=== PATIENT | female | born 1960 | race Caucasian/White ===

== ENCOUNTER 2021-11-04 16:13 | Emergency (ER) | payer BC, SELFPAY ==
--- NOTE | ~2021-11-04 | XR_ITS ---
EXAMINATION: XR thoracic spine 3V DATE: 11/04/2021 18:10 INDICATION: Mid back pain. TECHNIQUE: 3 views of thoracic spine were obtained. COMPARISON: None. FINDINGS: There is 8 degrees dextrocurvature of upper thoracic spine. Vertebral body heights are norm al. Intervertebral disc heights are normal. There are endplate osteophytes at most levels. Surgical c lips in the right upper quadrant are likely from cholecystectomy. IMPRESSION: 1. Mild thoracic spondylosis. Reviewed, dictated and finalized at location E. VAN CDL TRUCK DRIVER
--- NOTE | ~2021-11-04 | XR_ITS ---
XR chest 2V DATE: 11/04/2021 16:52 INDICATION: Left chest pain. Blurred vision. Headache. TECHNIQUE: PA and lateral views COMPARISON: None FINDINGS: Normal heart size. No hilar or mediastinal enlargement. No pulmonary infiltrate or consolid ation, pleural effusion or pulmonary vascular congestion or pneumothorax. Mild degenerative spurring of the thoracic spine. Status post cholecystectomy. IMPRESSION: No active cardiopulmonary disease Reviewed, dictated and finalized at location A. KLESS TROLLEY DRIVER
--- NOTE | ~2021-11-04 | CT_ITS ---
EXAMINATION: CT brain wo con DATE: 11/04/2021 17:01 INDICATION: Headache, blurred vision for 2 weeks TECHNIQUE: Computed tomography (CT) of the head was performed without intravenous contrast. The mA wa s adjusted according to patient size. Iterative reconstruction technique was employed. Exam dose: 60 3.05 mGy-cm total exam DLP. COMPARISON: None FINDINGS: No intracranial mass lesion or hemorrhage or cerebrovascular accident. No midline shift or mass effect. Normal ventricular size. Mild cerebral atherosclerotic calcification. There is nonspecific diminished attenuation of the cereb ral white matter, likely due to chronic small vessel ischemic changes. No subdural or epidural hematoma. No sellar or suprasellar mass lesion. The orbits are unremarkable. No fracture or bone destruction of the cranial vault. Bilateral nasal antral windows. Status post bilateral partial ethmoidectomies. There is mild echogram s thickening of the left maxillary and both sphenoid sinuses and some septal soft tissue thickening o f the remaining ethmoids septae. The mastoid air cells are unremarkable. IMPRESSION: Cerebral atherosclerosis and chronic small vessel ischemic changes of cerebral white mat ter No acute intracranial finding Reviewed, dictated and finalized at Location A. Reviewed, dictated and finalized at location A. EMS TECHNICIAN IMPRESSION: Cerebral atherosclerosis and chronic small vessel ischemic changes of cerebral white matter No acute intracranial finding
--- NOTE | ~2021-11-04 | XR_ITS ---
EXAMINATION: XR lumbar spine 2-3V DATE: 11/04/2021 18:10 INDICATION: Low back pain. TECHNIQUE: 3 views of lumbar spine were obtained. COMPARISON: None. FINDINGS: There is 3 mm anterolisthesis of L4 on L5. Vertebral body heights are normal. There is mild ly decreased disc height at L4-L5. There is multilevel facet joint osteoarthritis, severe at L4-L5. S urgical clips in the right upper quadrant are likely from cholecystectomy. IMPRESSION: 1. Mild lumbar spondylosis. Reviewed, dictated and finalized at location E. VIORAL THERAPY COORDINATOR IMPRESSION: 1. Mild lumbar spondylosis.
[2021-11-04 16:17] VITALS: BP 146/90; PULSE 70; RESP 20; TEMP 36.4; O2SAT 100
--- NOTE | 2021-11-04 16:32 | ECG_ITS ---
Measurements Intervals [place] Rate: 58 P: 5 [place]: 167 QRS: 9 QRSD: 84 T: 33 QT: 399 QTc: 395 Interpretive Statements SINUS BRADYCARDIA WITH SINUS ARRHYTHMIA BASELINE ARTIFACT- V1 BORDERLINE ECG Electronically Signed On 11-04-2021 16:46:22 REPAIR MECHANIC by Ubaldo Wilson D.O.
[2021-11-04 17:00] VITALS: BP 148/80; PULSE 60; RESP 16; TEMP 36.3; O2SAT 98
[2021-11-04 17:04] LABS: Basophils Percent Auto 0.6 % (0.2-1.2); Eosinophils Absolute Auto 0.3 K/mm3 (0-0.3); Eosinophils Percent Auto 4.3 % (0-4.4); Hematocrit 38.3 % (37.0-47.0); Hemoglobin 12.6 g/dL (12.0-15.0); Immature Granulocyte Absolute 0.01 K/mm3 (0.00-0.031); Immature Granulocyte Percent A 0.2 % (0-0.5); Mean Corpuscular HGB Conc 32.9 g/dl (32-36); Mean Corpuscular Hemoglobin 29.6 pg (26-34); Mean Corpuscular Volume 90.1 fl (80-100); Mean Platelet Volume 11.3 fl (7.4-10.4); Monocytes Absolute Auto 0.6 K/mm3 (0.1-0.6); Monocytes Percent Auto 8.8 % (2.6-8.5); Neutrophils Absolute Auto 3.4 K/mm3 (1.3-6.7); Neutrophils Percent Auto 52.1 % (45.5-73.1); Platelet Count Result 206 k/mm3 (150-375); Red Blood Count 4.25 M/mm3 (4.2-5.4); Red Cell Distribution Width 13.3 % (11.5-14.5); White Blood Count 6.5 K/mm3 (4.5-10.0)
[2021-11-04] MEDS: METOCLOPRAMIDE HCL INJ 10 MG/2 ML VIAL IV PUSH (17:06)
[2021-11-04] MEDS: diphenhydrAMINE HCl INJ 50 MG/ML VIAL 25 MG IV PUSH (17:06)
[2021-11-04] MEDS: SODIUM CHLORIDE 0.9% IV 1,000 ML 999 ML IV CONT (17:09)
[2021-11-04 17:14] LABS: Prothrombin Time 12.3 Seconds (11.1-14.7)
[2021-11-04 17:15] LABS: Partial Thromboplastin Time 28.6 SECONDS (22.3-36.8)
[2021-11-04 17:16] LABS: Alanine Aminotransferase 22 U/L (4-35); Albumin Level 4.1 g/dL (3.5-5.1); Alkaline Phosphatase 106 U/L (38-126); Anion Gap 3 mmol/L (8-16); Aspartate Amino Transferase 31 U/L (14-36); Bilirubin,Total 0.5 mg/dL (0.2-1.3); Blood Urea Nitrogen 20 mg/dL (7-17); Calcium 9.2 mg/dL (8.4-10.2); Carbon Dioxide 29 mmol/L (22-30); Chloride 102 mmol/L (98-107); Estimated CRCL calculation 67 ml/min; Estimated Glomerular Filt Rate > 60; Glucose 100 mg/dL (65-110); Lipase 98 U/L (23-300); Potassium 3.9 mmol/L (3.4-5.0); Sodium 134 mmol/L (137-145)
[2021-11-04 17:24] LABS: Troponin I < 0.012 ng/mL (0.000-0.034)
--- NOTE | 2021-11-04 17:45 | ED.HA ---
HPI - Headache General Chief Complaint: Headache Stated Complaint: headache, back pain, chest pain Time Seen by Provider: 11/04/21 16:46 Source: patient Mode of arrival: ambulatory Limitations: no limitations History of Present Illness HPI Narrative: This is a 61 year old female that presents to the ER with multiple complaints. Reports she has been getting headaches associated with blurred vision. Reports she has had intermittent chest pain for years. Also reports over the last couple of weeks she has had some mid-low back pain. No recent injuries. She reports history of arthritis. Does report her pain feels better when she is active. Denies fever, shortness of breath, vomiting, numbness or weakness. Related Data Allergies Allergy/AdvReac Type Severity Reaction Status Date / Time No Known Allergies Allergy Unknown Verified 12/19/13 10:42 Review of Systems Review of Systems: CONSTITUTIONAL: Denies fever EYES: Reports visual changes CARDIOVASCULAR: Reports chest pain. Denies edema. RESPIRATORY: Denies dyspnea. GASTROINTESTINAL: Denies vomiting MUSCULOSKELETAL: Reports back pain, joint pain, and myalgia. NEUROLOGIC: Reports headache. Denies numbness, or weakness. All systems reviewed & are unremarkable except as noted in HPI and below PMFSH Past Medical History Medical History (Updated 11/04/21 @ 19:12 by Tuyet Cali PA-C) History of hyperlipidemia History of hypothyroidism Social History Social History (Updated 11/04/21 @ 18:10 by Tuyet Cali PA-C) Smoking status: Never smoker Exam Narrative: GENERAL: Well-appearing, well-nourished, and in no acute distress. HEAD: Normocephalic, atraumatic. EYES: PERRLA and EOMI. ENT: Nares clear, no rhinorrhea or epistaxis. Mucous membranes moist. Oropharynx without tonsillar hypertrophy exudate or other lesions. Bilateral TMs pearly estrada non-bulging NECK: Supple. No adenopathy or masses. CHEST: Clear to auscultation. No respiratory distress. No wheezes rales or rhonchi HEART: Regular rate and rhythm. No murmur heard. Normal peripheral pulses. ABDOMEN: Soft, nontender, nondistended, normal active bowel sounds. EXTREMITIES: Normal range of motion. No edema. Strength equal in bilateral upper extremities (5/5) SKIN: Warm, dry, no rash. NEURO: No focal deficits. Alert and oriented x3. CN II-XII grossly intact PSYCH: Normal mood and affect Course Vital Signs Vital signs: Vital Signs Temperature 97.6 F 11/04/21 16:17 Pulse Rate 70 11/04/21 16:17 Respiratory Rate 20 11/04/21 16:17 Blood Pressure 146/90 H 11/04/21 16:17 Pulse Oximetry 100 11/04/21 16:17 Temperature 97.6 F 11/04/21 16:17 Pulse Rate 70 11/04/21 16:17 Respiratory Rate 20 11/04/21 16:17 Blood Pressure 146/90 H 11/04/21 16:17 Pulse Oximetry 100 11/04/21 16:17 MDM - Headache MDM Narrative Medical decision making narrative: Patient presents to the ER with multiple complaints which have been ongoing for weeks to years. Reports chest pain, back pain, and headaches. Patient is afebrile and nontoxic-appearing. She is neurologically intact. Reports improvement with migraine cocktail. CBC and metabolic panel without concerning findings. Lipase is normal. EKG without concerning ST changes and baseline troponin is negative. Chest x-ray without acute cardiopulmonary abnormality. Thoracic and lumbar spine x-rays show mild spondylosis. CT scan of the brain without acute findings. Patient was updated on case findings. She is stable and felt appropriate for further outpatient evaluation. She is instructed to follow-up with her primary care doctor. She was given warnings to return to the ER Lab Data Attestation: I reviewed the patient's lab results. Result diagrams: 11/04/21 16:36 11/04/21 16:36 Labs: Lab Results 11/04/21 11/04/21 11/04/21 Range/Units 16:36 16:36 16:36 WBC 6.5 (4.5-10.0) K/mm3 RBC 4.25 (4.2-5.4) M/mm3 Hgb 12.6
[2021-11-04 18:00] VITALS: BP 152/68; PULSE 58; RESP 16; O2SAT 98
[2021-11-04 19:00] VITALS: BP 150/78; PULSE 61; RESP 14; TEMP 36.4; O2SAT 99
== END 2021-11-04 19:21 | disposition home or self-care (01) ==
PROVIDERS: Emergency Medicine; Emergency Provider Emergency Medicine; PCP Family Medicine
DX: R51.9 Headache, unspecified (principal); R07.9 Chest pain, unspecified; M54.50 Low back pain, unspecified; G89.29 Other chronic pain; E78.5 Hyperlipidemia, unspecified; E03.9 Hypothyroidism, unspecified; M47.814 Spondylosis without myelopathy or radiculopathy, thoracic region; M47.816 Spondylosis without myelopathy or radiculopathy, lumbar region; I67.2 Cerebral atherosclerosis
CPT/HCPCS: 36415; 70450; 71046; 72072; 72100; 80053; 83690; 84484; 85025; 85610; 85730; 93005; 96361; 96365; 96375; 99284; J0131; J1200; J2765; J7030

== ENCOUNTER 2022-02-03 11:53 | Emergency (ER) | payer BC, SELFPAY ==
[2022-02-03 12:00] VITALS: BP 124/68; PULSE 63; RESP 18; TEMP 37.3; O2SAT 97
--- NOTE | 2022-02-03 12:15 | ED.URI ---
HPI - URI/Sore Throat General Chief Complaint: Upper Respiratory Infection Stated Complaint: congestion Time Seen by Provider: 02/03/22 12:15 Source: patient, family, RN notes reviewed and old records reviewed Mode of arrival: ambulatory Limitations: no limitations History of Present Illness HPI Narrative: 61-year-old female presents to the [facility] with nasal congestion, allergy symptoms since Sunday. Lost her taste yesterday, lost her smell on Sunday. Concern for COVID. Patient is vaccinated against COVID but not flu. Patient reports negative home COVID test. Related Data Home Medications Medication Instructions Recorded Confirmed atorvastatin 20 mg DIRECTED 02/03/22 02/03/22 levothyroxine 100 mcg DIRECTED 02/03/22 02/03/22 mirabegron [Myrbetriq] 25 mg PO DIRECTED 02/03/22 02/03/22 oxybutynin chloride 10 mg PO DIRECTED 02/03/22 02/03/22 pantoprazole 40 mg PO DIRECTED 02/03/22 02/03/22 valacyclovir 500 mg DIRECTED 02/03/22 02/03/22 Allergies Allergy/AdvReac Type Severity Reaction Status Date / Time No Known Allergies Allergy Unknown Verified 12/19/13 10:42 Review of Systems Review of Systems: All systems reviewed & are unremarkable except as noted in HPI and below Constitutional: Constitutional: Reports no additional constitutional complaints, Denies chills, Denies fever(s) and Denies headache(s) Eyes: Eyes: Reports no additional eye complaints ENT: Reports as per HPI, Denies vertigo, Denies dizziness, Denies headache(s), Reports nasal congestion and Denies sore throat Comments: Loss of taste and smell Cardiovascular: Cardiovascular: Reports no additional cardiovascular complaints, Denies chest pain, Denies syncope, Denies rapid heart rate and Denies dyspnea Respiratory: Respiratory: Reports as per HPI, Reports chest congestion, Reports cough, Denies dyspnea and Denies wheezing Gastrointestinal: Gastrointestinal: Reports no additional gastrointestinal complaints, Denies abdominal pain, Denies diarrhea, Denies nausea and Denies vomiting Musculoskeletal: Musculoskeletal: Reports no additional musculoskeletal complaints and Denies numbness Integumentary/Breasts: Skin/Breast: Reports system reviewed and no additional complaints, except as docu Neurologic: Reports as per HPI, Denies vertigo, Denies dizziness, Denies syncope, Reports headache(s), Denies focal weakness and Denies numbness Psychiatric: Psychiatric: Reports no additional psychiatric complaints Allergic/Immunologic: Allergic/Immunologic: Reports no additional allergic/immunologic complaints and Denies wheezing PMFSH Past Medical History Medical History History of hyperlipidemia History of hypothyroidism Social History Social History Smoking status: Never smoker Comments At the time of my signature, I reviewed and agree with the nursing past medical, surgical, social, and family history. There is no relevant family history pertinent to the patient complaint. Exam Const: General: cooperative, healthy appearing, no acute distress, well developed and alert Nutritional Appearance: well nourished Orientation/consciousness: patient oriented x3 Limitations: no limitations HENMT: Head: normal to inspection General nose exam: Normal external nose present and Nasal discharge present clear Face and sinus: normal facial exam Mouth: Yes Normal oral and palatal mucosa present and Yes moist mucous membranes Throat: posterior oropharynx normal, tonsils normal, uvula midline and no uvular edema Eyes: Conjunctivae: conjunctivae normal Pupils: Equal, round and reactive pupils present Neck: Neck: normal visual inspection, no lymphadenopathy and no meningeal signs Chest: Chest palpation & inspection: normal inspection of the chest Resp: Effort & Inspection: normal respiratory effort and no use of accessory muscles Auscultation: c
[2022-02-03 19:53] LABS: SARS-CoV-2 RNA PCR Negative
== END 2022-02-03 13:11 | disposition home or self-care (01) ==
PROVIDERS: Emergency Provider Nurse Practitioner; PCP Family Medicine
DX: J06.9 Acute upper respiratory infection, unspecified (principal); Z20.822 Contact with and (suspected) exposure to COVID-19; E78.5 Hyperlipidemia, unspecified; E03.9 Hypothyroidism, unspecified
CPT/HCPCS: 87804; 99213; C9803; G0463; U0003; U0005

== ENCOUNTER 2022-07-20 00:21 | Day surgery (SDC) | payer OTHER, SELFPAY ==
[2022-07-12 15:21] VITALS: BMI 32.3
--- NOTE | 2022-07-20 06:42 | PM.HPGS ---
History of Present Illness History of Present Illness Consent: Risks, benefits, and alternatives have been discussed and questions answered. Patient agrees to proceed with procedure. Chief complaint: dysphagia Narrative: Lisa Diaz is a 62 year old female With dysphagia for solid foods such as bread and cake. She often has a need to clear her throat. She believes that she has less sinus drainage. An ENT physician told her that he Jo inflammation and prescribe pantoprazole. That did not seem to make a difference. Review of Systems Review of Systems: All systems reviewed & are unremarkable except as noted in HPI and below PMFSH Past Medical History Medical History Colon cancer screening History of hyperlipidemia History of hypothyroidism Obesity (BMI 30-39.9) Social History Social History Smoking status: Never smoker Alcohol intake: current Alcohol use details: 1-2 drinks monthly Substance use type: does not use Living arrangements: alone Spiritual care concerns: No Meds Home Medications and Allergies Home Medications Medication Instructions Recorded Confirmed Type atorvastatin 20 mg tablet 20 mg PO DAILY 02/03/22 07/12/22 History levothyroxine 100 mcg tablet 100 mcg PO DAILY 02/03/22 07/12/22 History mirabegron 25 mg tablet,extended 25 mg PO DAILY 02/03/22 07/12/22 History release 24 hr (Myrbetriq) pantoprazole 40 mg tablet,delayed 40 mg PO DAILY 02/03/22 07/12/22 History release valacyclovir 500 mg tablet 500 mg PO DAILY 02/03/22 07/12/22 History Lactobacillus 1 cap PO DAILY 07/12/22 07/12/22 History acidophilus-Bifidobac.animalis 2.5 billion cell capsule (Daily Probiotic) ascorbic acid (vitamin C) 500 mg 500 mg PO DAILY 07/12/22 07/12/22 History tablet (Vitamin C With Diana Hips) cetirizine 10 mg tablet (Zyrtec) 10 mg PO DAILY 07/12/22 07/12/22 History estradiol 1 mg tablet 1 mg PO DAILY 07/12/22 07/12/22 History oruyzdpp-mokt-szasg acid 240 1 tablet PO DAILY 07/12/22 07/12/22 History mcg-vit K 120 poj-gmdhju-grwp 293 tablet (Alive Women's 50 Plus (fruit-veg blend)) Allergies Allergy/AdvReac Type Severity Reaction Status Date / Time codeine AdvReac Hallucinati Verified 07/20/22 07:52 ng morphine AdvReac Hallucinati Verified 07/20/22 07:52 ng Benadryl cocktail AdvReac Hallucinati Uncoded 07/12/22 15:25 ng Exam Const: General: alert Orientation/consciousness: patient oriented x3 Resp: Auscultation: clear to auscultation bilaterally Cardio: Rhythm: regular rhythm GI: GI Palp: Yes Soft to palpation and No Tenderness to palpation present (GI) Neuro: General: patient oriented x3 Assessment and Plan Assessment and plan (1) Dysphagia: Code(s): R13.10 - Dysphagia, unspecified Status: Acute Assessment and Plan: EGD with possible biopsy or dilatation or cautery.
[2022-07-20 07:53] VITALS: BP 106/73; PULSE 56; RESP 18; TEMP 36.6; O2SAT 98; BMI 32.5
[2022-07-20] MEDS: LACTATED RINGERS 1,000 ML 150 ML IV CONT (08:04)
--- NOTE | 2022-07-20 08:38 | WPDANESEPPF ---
Anes - Initial Pre Proc Eval Procedure: Operation Date: 07/20/22 09:00 Proposed Procedures p Esophagogastroduodenoscopy EGD - Giovani Ontiveros MD Date/Time: 07/20/22 08:38 Surgeon: Giovani Ontiveros MD Pre Op Diagnosis: dysphagia Patient Data Age: 62 Gender: F Height: 1.68 m Weight: 91.6 kg Last Vital Signs Temp 97.8 F 07/20/22 07:53 Pulse 56 L 07/20/22 07:53 Resp 18 07/20/22 07:53 BP 106/73 07/20/22 07:53 Pulse Ox 98 07/20/22 07:53 O2 Del Method Room Air 07/20/22 07:53 Allergies Allergy/AdvReac Type Severity Reaction Status Date / Time codeine AdvReac Hallucinati Verified 07/20/22 07:52 ng morphine AdvReac Hallucinati Verified 07/20/22 07:52 ng Benadryl cocktail AdvReac Hallucinati Uncoded 07/12/22 15:25 ng Home Medications Medication Instructions Recorded Confirmed Type atorvastatin 20 mg tablet 20 mg PO DAILY 02/03/22 07/12/22 History levothyroxine 100 mcg tablet 100 mcg PO DAILY 02/03/22 07/12/22 History mirabegron 25 mg tablet,extended 25 mg PO DAILY 02/03/22 07/12/22 History release 24 hr (Myrbetriq) pantoprazole 40 mg tablet,delayed 40 mg PO DAILY 02/03/22 07/12/22 History release valacyclovir 500 mg tablet 500 mg PO DAILY 02/03/22 07/12/22 History Lactobacillus 1 cap PO DAILY 07/12/22 07/12/22 History acidophilus-Bifidobac.animalis 2.5 billion cell capsule (Daily Probiotic) ascorbic acid (vitamin C) 500 mg 500 mg PO DAILY 07/12/22 07/12/22 History tablet (Vitamin C With Diana Hips) cetirizine 10 mg tablet (Zyrtec) 10 mg PO DAILY 07/12/22 07/12/22 History estradiol 1 mg tablet 1 mg PO DAILY 07/12/22 07/12/22 History zujhyglw-sfhq-msmru acid 240 1 tablet PO DAILY 07/12/22 07/12/22 History mcg-vit K 120 kfd-tbxenx-phfx 293 tablet (Alive Women's 50 Plus (fruit-veg blend)) Patient hx anesthesia problems: none Family hx anesthesia problems: none Results Review: All pre-operative results and documents have been reviewed as part of the pre-operative evaluation. [facility] Past Medical History Medical History (Updated 07/20/22 @ 06:42 by Giovani Ontiveros MD) Colon cancer screening History of hyperlipidemia History of hypothyroidism Obesity (BMI 30-39.9) Social History Social History Smoking status: Never smoker Alcohol intake: current Alcohol use details: 1-2 drinks monthly Substance use type: does not use Living arrangements: alone Spiritual care concerns: No Anes - Eval Final PreProcedure Day of Procedure 07/20/22 08:38 Patient weight: obese Heart: regular rate and rhythm Lungs: clear to auscultation Airway: Mallampati scale class II Neurological: alert and oriented Last oral intake: >/= 8 hours ASA classification: II Emergent: no Anesthetic plan: proceed Anesthesia type and monitoring: general GIVS and standard monitoring Results Review: All pre-operative results and documents have been reviewed as part of the pre-operative evaluation. Informed Consent: The patient's anesthetic plan and its attendant risks and benefits were discussed with the patient/family/POA. Questions were solicited and answers provided to the satisfaction of the patient/family/POA.
[2022-07-20 09:02] VITALS: BP 106/63; PULSE 68; RESP 27; O2SAT 98
[2022-07-20 09:12] VITALS: BP 111/71; PULSE 62; RESP 19; O2SAT 99
[2022-07-20 09:22] VITALS: BP 108/75; PULSE 60; RESP 17; O2SAT 97
== END 2022-07-20 09:33 | disposition home or self-care (01) ==
PROVIDERS: PCP Family Medicine; Visit Provider Internal Medicine Gastroenterology
PROC: 0DJ08ZZ Inspection of Upper Intestinal Tract, Via Natural or Artificial Opening Endoscopic (ICD-10-PCS; CPT 43235; principal; 2022-07-20 09:00)
DX: R13.10 Dysphagia, unspecified (principal); K21.9 Gastro-esophageal reflux disease without esophagitis; E78.5 Hyperlipidemia, unspecified; E03.9 Hypothyroidism, unspecified; E66.9 Obesity, unspecified; Z68.32 Body mass index [BMI] 32.0-32.9, adult
CPT/HCPCS: 43239; 87081; 88305; J2704; J7120

== ENCOUNTER 2022-11-21 21:56 | Emergency (ER) | payer OTHER, SELFPAY ==
--- NOTE | ~2022-11-21 | XR_ITS ---
Clinical Indication: Chest pain PA and lateral views of the chest: Comparison: 11/04/2021 Findings: The lungs are clear, without evidence of focal consolidation or pleural effusion. Cardiome diastinal silhouette is within normal limits. Bones and soft tissues are unremarkable. Impression: Normal chest. Reviewed, dictated and finalized at location . GER HELPDESK Impression: Normal chest.
[2022-11-21 21:58] VITALS: BP 146/94; PULSE 63; RESP 17; TEMP 36.6; O2SAT 99
--- NOTE | 2022-11-21 22:01 | ECG_ITS ---
Measurements Intervals [place] Rate: 66 P: 20 [place]: 163 QRS: -15 QRSD: 84 T: 54 QT: 379 QTc: 400 Interpretive Statements SINUS RHYTHM WITH SINUS ARRHYTHMIA DELAYED PRECORDIAL R/S TRANSITION BASELINE ARTIFACT- I, II, III, AVR, AVL, AVF, V1-V6 COMPARED TO ECG 11/04/2021 16:43:05 SINUS RHYTHM NOW PRESENT Electronically Signed On 11-22-2022 6:40:00 FUEL YARD OPERATOR by Ubaldo Wilson D.O.
[2022-11-21 22:14] LABS: Basophils Absolute Auto 0.1 K/mm3 (0.0-0.1); Basophils Percent Auto 0.8 % (0.2-1.2); Eosinophils Absolute Auto 0.4 K/mm3 (0-0.3); Eosinophils Percent Auto 5.2 % (0-4.4); Hematocrit 41.7 % (37.0-47.0); Hemoglobin 13.7 g/dL (12.0-15.0); Immature Granulocyte Absolute 0.03 K/mm3 (0.00-0.031); Immature Granulocyte Percent A 0.4 % (0-0.5); Lymphocytes Absolute Auto 2.76 K/mm3 (0.9-3.2); Mean Corpuscular HGB Conc 32.9 g/dl (32-36); Mean Corpuscular Hemoglobin 29.4 pg (26-34); Mean Corpuscular Volume 89.5 fl (80-100); Mean Platelet Volume 10.6 fl (7.4-10.4); Monocytes Absolute Auto 0.6 K/mm3 (0.1-0.6); Monocytes Percent Auto 8.5 % (2.6-8.5); Neutrophils Absolute Auto 3.3 K/mm3 (1.3-6.7); Neutrophils Percent Auto 46.1 % (45.5-73.1); Platelet Count Result 222 k/mm3 (150-375); Red Blood Count 4.66 M/mm3 (4.2-5.4); Red Cell Distribution Width 13.3 % (11.5-14.5); White Blood Count 7.1 K/mm3 (4.5-10.0)
[2022-11-21 22:23] LABS: INR 0.9; Platelet Estimate Adequate (Adequate); Prothrombin Time 11.8 Seconds (11.1-14.7)
[2022-11-21 22:24] LABS: Alanine Aminotransferase 24 U/L (6-35); Albumin Level 4.4 g/dL (3.5-5.1); Alkaline Phosphatase 92 U/L (38-126); Anion Gap 5 mmol/L (8-16); Aspartate Amino Transferase 28 U/L (14-36); Bilirubin,Total 0.6 mg/dL (0.2-1.3); Blood Urea Nitrogen 18 mg/dL (7-17); Calcium 9.2 mg/dL (8.4-10.2); Carbon Dioxide 30 mmol/L (22-30); Chloride 103 mmol/L (98-107); Estimated CRCL calculation 82 ml/min; Estimated Glomerular Filt Rate > 60; Glucose 117 mg/dL (65-110); Lipase 123 U/L (23-300); Partial Thromboplastin Time 27.4 SECONDS (22.3-36.8); Schistocytes None Seen (NORMAL); Sodium 138 mmol/L (137-145)
[2022-11-21 22:35] LABS: Troponin I < 0.012 ng/mL (0.000-0.034)
[2022-11-22] VITALS (12 sets, daily range): BP systolic 106–169; BP diastolic 57–76; PULSE 62–78; RESP 12–30; O2SAT 97–98
--- NOTE | 2022-11-22 02:00 | ED.CHESTPAIN ---
HPI - Chest Pain General Chief Complaint: Chest Pain Stated Complaint: dizziness and chest discomfort Time Seen by Provider: 11/22/22 01:21 Source: patient, RN notes reviewed and old records reviewed Mode of arrival: ambulatory Limitations: no limitations History of Present Illness HPI narrative: This is a 62 year old female who presents for evaluation of chest tightness. She states that around 9 pm she developed sudded onset left breast squeezing and it felt like it went straight to her back. She also reports she felt her heart throbbing and there was also throbbing sensation in her head. She also reports feeling pain in her left arm . She reports becoming scared and panicked. She reports mild sob. She denies slurred speech, diaphoresis, focal weakness. Her throbbing has resolved. She states her chest tightness has subsided and it is 2/10 now. She reports mild headache. She states she has history of costochondritis. She has had negative heart catheterization in past 10 years. She denies recent issue with dyspnea on exertion and chest pain. She does report chronic fatigue sincer her bout with covid. Related Data Home Medications Medication Instructions Recorded Confirmed atorvastatin 20 mg tablet 20 mg PO DAILY 02/03/22 07/12/22 levothyroxine 100 mcg tablet 100 mcg PO DAILY 02/03/22 07/12/22 mirabegron 25 mg tablet,extended 25 mg PO DAILY 02/03/22 07/12/22 release 24 hr (Myrbetriq) pantoprazole 40 mg tablet,delayed 40 mg PO DAILY 02/03/22 07/12/22 release valacyclovir 500 mg tablet 500 mg PO DAILY 02/03/22 07/12/22 Lactobacillus 1 cap PO DAILY 07/12/22 07/12/22 acidophilus-Bifidobac.animalis 2.5 billion cell capsule (Daily Probiotic) ascorbic acid (vitamin C) 500 mg 500 mg PO DAILY 07/12/22 07/12/22 tablet (Vitamin C With Diana Hips) cetirizine 10 mg tablet (Zyrtec) 10 mg PO DAILY 07/12/22 07/12/22 estradiol 1 mg tablet 1 mg PO DAILY 07/12/22 07/12/22 amkwmdyu-uwvm-dsfzk acid 240 1 tablet PO DAILY 07/12/22 07/12/22 mcg-vit K 120 ybq-vfdqmf-xpsc 293 tablet (Alive Women's 50 Plus (fruit-veg blend)) Allergies Allergy/AdvReac Type Severity Reaction Status Date / Time codeine AdvReac Hallucinati Verified 11/21/22 21:56 ng morphine AdvReac Hallucinati Verified 11/21/22 21:56 ng Benadryl cocktail AdvReac Hallucinati Uncoded 11/21/22 21:56 ng Review of Systems Constitutional: Constitutional: Reports fatigue Cardiovascular: Cardiovascular: Denies syncope, Denies rapid heart rate, Denies irregular heart rhythm, Reports leg edema (chronic lymphedmea) and Reports dyspnea Respiratory: Respiratory: Denies chest congestion, Denies hemoptysis, Denies excessive phlegm production and Denies dyspnea Gastrointestinal: Gastrointestinal: Denies abdominal pain, Denies hematochezia, Denies diarrhea and Denies vomiting Genitourinary: Genitourinary: Denies hematuria and Denies dysuria Musculoskeletal: Musculoskeletal: Denies joint swelling, Denies loss of height and Denies muscle weakness Neurologic: Denies syncope, Denies focal weakness and Denies weakness PMFSH Past Medical History Medical History Colon cancer screening History of hyperlipidemia History of hypothyroidism Obesity (BMI 30-39.9) Social History Social History Smoking status: Never smoker Alcohol intake: current Alcohol use details: 1-2 drinks monthly Substance use type: does not use Living arrangements: alone Spiritual care concerns: No Exam Narrative: GENERAL: Well-appearing, well-nourished, and in no acute distress. HEAD: Normocephalic, atraumatic EYES: PERRLA and EOMI, conjunctiva clear without discharge THROAT:Mucous membranes moist, Oropharynx normal without erythema, exudate, peritonsillar swelling or fluctuance NECK: Supple, without lymphadenopathy or mass RESPIRATORY: No respiratory
[2022-11-22 02:12] LABS: Troponin I < 0.012 ng/mL (0.000-0.034)
[2022-11-22] MEDS: SODIUM CHLORIDE 0.9% IV 1,000 ML 999 ML IV CONT (02:43)
[2022-11-22 03:16] LABS: D Dimer 0.37 ug/mL (<0.48)
== END 2022-11-22 03:45 | disposition home or self-care (01) ==
PROVIDERS: Emergency Provider General Practice; PCP Family Medicine
DX: R07.9 Chest pain, unspecified (principal); E78.5 Hyperlipidemia, unspecified; E03.9 Hypothyroidism, unspecified
CPT/HCPCS: 36415; 71046; 80053; 83690; 84484; 85025; 85380; 85610; 85730; 93005; 96360; 99284; J7030

== ENCOUNTER 2024-11-17 15:30 | Outpatient (RCR) | payer BC, SELFPAY ==
--- NOTE | 2024-10-13 14:50 | OPREHPOC ---
Outpatient Therapy Plan of Care This is a Multidisciplinary Plan of Care that may contain components documented by all disciplines (PT, OT, and ST.) PT Problem 1 PT Problem #1 Knowledge Deficit PT Goal 1 Goal / Goal Update *indep with HEP for water and land exercises Target Visit 10 PT Problem 2 PT Problem #2 Pain PT Goal 1 Goal / Goal Update * pt report pain rating at worst of 4/10 L knee Target Visit 10 PT Goal 2 Goal / Goal Update * pt report times of NO pain in L knee Target Visit 10 PT Problem 3 PT Problem #3 Impaired Flexibility PT Goal 1 Goal / Goal Update * increase sitting, active L knee flexion to 110', to improve ability to transfer sit/stand and stairs Target Visit 10 PT Goal 2 Goal / Goal Update * increase anterior hip/quad length with prone knee flexion 110', to increase flexibility of quad muscle and hip extension Target Visit 10
--- NOTE | 2024-10-13 14:50 | PTOPEVAL1 ---
Assessment and note entered by Poornima Brown, PT Evaluation Information Assessment Status Evaluation ICD-10 Condition Codes (PT) Aftercare following joint replacement surgery Z47. 1,Lymphedema I89.0 Onset 03-18-24 Subjective Information had L TKR in February and knee is still having problems--knee pain and swelling; have a home compression pump and night garment for managing swelling- have lymphedema and lipedema have had pain meds- not able to tolerate meds; knee injections-- 2x- not helped; have had MRI after TKR and it was negative to see tomorrow for xray--fell on ice last week have some loss of balance is very frustrated by this knee continuing to hurt hurts more than before she had the knee surgery. 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 She reports continue to have pain in knee with tightness and not able to fully bend her knee. Self assessment with LE functional scale rating of 48% limitation in activity level. Her medical history includes: lymphedema of bilateral LE's and lipedema--- has received treatment for this and is using a home compression pump and night compression garments. Currently is working as a teacher and tries to remain active. Orders include aquatic therapy. With the evaluation: L knee active ROM is 0-100', with pain at full flexion; tenderness, spams and pain with palpation over L mid and lateral quads and ITB; 2 minute walking test distance of 460'; tightness of anterior hip/quad length with prone knee flexion R 125'/ L 95'. Skilled PT services are indicated for aquatic and land exercises to increase strength of L LE and knee flexion ROM; modalities to decrease pain and spasms over L quad and ITB, education for HEP and pain control. Plan of Care Interventions Aquatic Therapy,Manual Therapy,Neuro Re-education, Patient/Caregiver Education,Therapeutic Activities ,Therapeutic Exercise,Other Other Interventions dry needling PT Services Indicated Yes Treatment Frequency and 2x/wk for 10 visits Duration These treatments will address the objective and functional deficits as defined above. The patient will be advanced safely and appropriately in order for the patient to progress towards his/her prior level of function. Additional exercises will be introduced and as well as a comprehensive home exercise program upon discharge, if needed, ?to ensure carryover of functional gains achieved in the clinic. This treatment plan has been reviewed and agreement upon by the patient.
--- NOTE | 2024-10-16 10:26 | PCPTNOTE ---
REMOVE Dry needling from Plan of Care. After talking with JAZMYN CheungT who does the dry needling--pt diagnosis of lymphedema of the L LE and L TKR make dry needling a contraindication.
--- NOTE | 2024-11-10 10:02 | PCPTNOTE ---
Pt canceled aqua appt. today due to increased knee pain. Stated she is calling orth for an appt.
--- NOTE | 2024-11-17 16:38 | PTOPDC ---
Assessment and note entered by Poornima Brown, PT Assessment Status Discharge ICD-10 Condition Codes (PT) Aftercare following joint replacement surgery Z47. 1,Lymphedema I89.0 Onset 03-18-24 Subjective Information pain is more in knee and leg; am getting worse and do not know why it is hurting more; the stretches and exercises make it worse; wear compression over L leg all the time, even sleep with the garment; had a dr appt, but it was snowing and did not go to it; have not noticed any big difference with water exercises- feel like I need a larger pool to be able to move more, instead of the small pool used here; always have had back pain: L low back hurts and tender to touch; do not want to have anything done for my back, do not like for it to be touched Reported Pain Level Pain Score Self Report Additional Pain Score Comments pain range in the past week : L knee- anterior/ entire patella & lateral knee, lateral hip and L low back; have more swelling in L leg; using the ice over L knee; using the compression garments on leg during day and night; stretching on stomach and bending knee hurts now; was taking meloxicam and aleve- but not taking anymore, make me sleepy; Assessment PT Clinical Summary Abby has received 8 PT sessions. She expressed concern and very anxious about continuing to have pain, worse than before surgery leg is more swollen, doing everything she should be doing and is worse off than before. She wants to return to riding her bike, try going to a larger pool at the fitness center for aquatic exercises. And keep up with her exercises on her own and see what happens. Compared to the initial evaluation: pain rating is the same at -05/03; LE functional scale rating from 48 to 40% limitation in activity level; increase L knee active flexion to 105' and anterior hip/ quad length with prone knee flexion 105'; Continues to have muscle spasms and tenderness over L mid to distal quad and along entire ITB from lateral hip. She jumped and was anxious when her L sacrum and buttock area was touched-- do not want to be touched there, always hurts in back have stenosis and not want it checked out. Discussed with pt at length: her L knee and leg pain may be radicular from her low back and/or L hip. The additional swelling of her L leg is from the trauma of the TKR surgery and disruption to her lymphatic system, and she is still recovering from the surgery. Recommendation to pt: continue her HEP, activity as tolerated-- monitoring her pain. And further assessment of her back and L hip. She reports do not want any surgery on her back. Discussed with her: PT for back and hip, can address the pain without surgery. The PT goals were partially achieved. Discharge PT. She is to follow up with her medical provider. And to continue with her HEP and activity as tolerated. Plan of Care PT Services Indicated No
== END 2024-11-17 16:58 | disposition home or self-care (01) ==
LOC: ANHPT 15:30
PROVIDERS: PCP Family Medicine; Visit Provider Orthopaedic Surgery
DX: I89.0 Lymphedema, not elsewhere classified (principal); Z96.652 Presence of left artificial knee joint
CPT/HCPCS: 97110; 97113; 97140; 97162; 97530